=== PATIENT | male | born 1985 | race Caucasian/White ===

== ENCOUNTER 2017-03-05 20:27 | Emergency (ER) | payer SELFPAY ==
[~2017-03-05] VITALS: Ht 180.3 cm; Wt 88.0 kg
[2017-03-05 20:29] VITALS: BP 146/89; PULSE 92; RESP 16; TEMP 97.6; O2SAT 100
[2017-03-05 20:49] VITALS: BP 123/76; PULSE 101; RESP 24; TEMP 98; O2SAT 100
[2017-03-05] MEDS ORDERED: no home meds (20:53)
[2017-03-05] MEDS ORDERED: SODIUM CHLOR 0.9% 1000 ML INJ 1,000 ML IV SCH (20:55)
[2017-03-05] MEDS ORDERED: ONDANSETRON HCL 4 MG/2 ML VIAL ONE (20:57)
[2017-03-05] MEDS ORDERED: ONDANSETRON HCL 4 MG/2 ML VIAL IV PUSH ONE (21:00)
[2017-03-05] MEDS ORDERED: HYDROmorphone HCL PF 2 MG/ML VIAL IV PUSH ONE (21:00)
[2017-03-05] MEDS ORDERED: SILVER SULFADIAZINE 1% CR 50 GM JAR TOPICAL ONE (21:00)
[2017-03-05] MEDS ORDERED: KETOROLAC TROMETHAMINE 30 MG/ML (IVP) VIAL IV PUSH ONE (21:00)
[2017-03-05 21:20] LABS: BASOPHIL % 0.5 % (0.0-2.0); EOSINOPHIL # 0.4 TH/MM3 (0-0.4); EOSINOPHIL % 5.1 % (0.0-4.0); HEMATOCRIT 38.7 % (39.0-51.0); HEMO FLAGS DIFF FINAL; LYMPH % 29.6 % (9.0-44.0); LYMPHOCYTE # 2.5 TH/MM3 (1.0-4.8); MEAN CELL VOLUME 91.5 FL (80.0-100.0); MEAN CORPUSCULAR HEMOGLOBIN 31.5 PG (27.0-34.0); MEAN CORPUSCULAR HGB CONC 34.5 % (32.0-36.0); MONO % 6.7 % (0.0-8.0); NEUT % 58.1 % (16.0-70.0); PLATELET COUNT 309 TH/MM3 (150-450); RED BLOOD COUNT 4.23 MIL/MM3 (4.50-5.90); RED CELL DISTRIBUTION WIDTH 13.6 % (11.6-17.2); WHITE BLOOD COUNT 8.6 TH/MM3 (4.0-11.0)
[2017-03-05] MEDS ORDERED: TETANUS/DIPHTHERIA TOXOID ADULT 0.5 ML VIAL IM ONE (21:30)
--- NOTE | 2017-03-05 21:32 | PD ---
HPI Chief Complaint: Burn Time Seen by Provider: 21:27 Travel History International Travel<30 days: No Contact w/Intl Traveler<30days: No Traveled to known affect area: No History of Present Illness HPI 31-year-old male that presents to the ED for evaluation of burn to his right foot. Per patient he was a barbecue and he accidentally stepped on a piece of coal. This apparently happened about 45 minutes ago. Patient put the foot on eyes and she continued to have a lot of pain so he came here. He states that he does not know his last tetanus shot. He denies any medical issues. No history of drug abuse. Patient does state that he did drink alcohol today. He has no allergies to medication. No abdominal pain. No fevers chills or sweats. No other trauma reported. Patient states that all of his pain is on the plantar aspect of the foot. Able to move all toes. Patient cannot walk on the foot secondary to pain. Patient rates his pain is 10 out of 10. PFSH Past Medical History Medical History: Denies Significant Hx Diminished Hearing: No Tetanus Vaccination: Unknown Past Surgical History Surgical History: No Previous Surgery Social History Alcohol Use: Yes Tobacco Use: No Substance Use: No Allergies-Medications (Allergen,Severity, Reaction): Coded Allergies: No Known Allergies (Unverified , 03/05/17) Reported Meds & Prescriptions Reported Meds & Active Scripts Active Diclofenac Sodium DR (Diclofenac Sodium) 75 Mg Tabdr 75 Mg PO BID PRN Percocet (Oxycodone-Acetaminophen) 10-325 mg Tab 1 Tab PO Q6H PRN Keflex (Cephalexin) 250 Mg Cap 500 Mg PO Q8HR 7 Days Silvadene Topical (Silver Sulfadiazine) 1 % Cream 1 Applic TOPICAL DAILY 10 Days Reported [no home meds] Review of Systems Except as stated in HPI: all other systems reviewed are Neg Physical Exam Narrative GENERAL: SKIN: Warm and dry. HEAD: Atraumatic. Normocephalic. EYES: Pupils equal and round. No scleral icterus. No injection or drainage. ENT: No nasal bleeding or discharge. Mucous membranes pink and moist. Tongue is midline. No uvula deviation. NECK: Trachea midline. No JVD. CARDIOVASCULAR: Regular rate and rhythm. No murmurs, S3, S4. RESPIRATORY: No accessory muscle use. Clear to auscultation. Breath sounds equal bilaterally. GASTROINTESTINAL: Abdomen soft, non-tender, nondistended. Hepatic and splenic margins not palpable. MUSCULOSKELETAL: Extremities without clubbing, cyanosis, or edema. No obvious deformities. Full range of motion of the upper and lower extremities bilaterally. Patient does have what appears to be a second-degree burn with some blistering on the plantar aspect of the foot. About 5 cm. Does appear to be intact. Very tender to touch. Area surrounding the blister does appear to be first-degree burn with erythema. Total burn is less than 1% of body. It is not circumferential. Nothing noted on the heel. NEUROLOGICAL: Awake and alert. No obvious cranial nerve deficits. Motor grossly within normal limits. Five out of 5 muscle strength in the arms and legs. Normal speech. PSYCHIATRIC: Appropriate mood and affect; insight and judgment normal. Data Data Last Documented VS Vital Signs Date Time Temp Pulse Resp B/P Pulse Ox O2 Delivery O2 Flow Rate FiO2 03/05/17 20:49 98.0 101 24 123/76 100 Room Air Orders Complete Blood Count With Diff (03/05/17 20:53) Basic Metabolic Panel (Bmp) (03/05/17 20:53) Hydromorphone Pf Inj (Dilaudid Pf Inj) (03/05/17 21:00) Ondansetron Inj (Zofran Inj) (03/05/17 21:00) Silver Sulfadia 1% Crm (50 Gm) (Silvaden (03/05/17 21:00) Wound Care (03/05/17 20:53) Sodium Chlor 0.9% 1000 Ml Inj (Ns 1000 M (03/05/17 20:55) Ondansetron Inj (Zofran Inj) (03/05/17 20:57) Ketorolac Inj (Toradol Inj) (03/05/17 21:00) Tetanus/Diphtheria Tox Adult (Tetanus/Di (03/05/17 21:30) Labs Laboratory Tests Test 03/05/17 21:00 White Blood Count 8.6 TH/MM3 Red Blood Count 4.23 MIL/MM3 Hemoglobin 13.3 GM/DL Hematocrit 38.7 % Mean Corpuscular Volume 91.5 FL Mean Corpuscular Hemoglobin 31.5 PG Mean Corpuscular Hemoglobin 34.5 % Concent Red Cell Distribution Width 13.6 % Platelet Count 309 TH/MM3 Mean Platelet Volume 7.3 FL Neutrophils (%) (Auto) 58.1 % Lymphocytes (%) (Auto) 29.6 % Monocytes (%) (Auto) 6.7 % Eosinophils (%) (Auto) 5.1 % Basophils (%) (Auto) 0.5 % Neutrophils # (Auto) 5.0 TH/MM3 Lymphocytes # (Auto) 2.5 TH/MM3 Monocytes # (Auto) 0.6 TH/MM3 Eosinophils # (Auto) 0.4 TH/MM3 Basophils # (Auto) 0.0 TH/MM3 CBC Comment DIFF FINAL Differential Comment Sodium Level 142 MEQ/L Potassium Level 4.3 MEQ/L Chloride Level 106 MEQ/L Carbon Dioxide Level 28.6 MEQ/L Anion Gap 7 MEQ/L Blood Urea Nitrogen 12 MG/DL Creatinine 1.18 MG/DL Estimat Glomerular Filtration 72 ML/MIN Rate Random Glucose 73 MG/DL Calcium Level 8.7 MG/DL MDM Medical Decision Making Medical Screen Exam Complete: Yes Emergency Medical Condition: Yes Medical Record Reviewed: Yes Interpretation(s) CBC & BMP Diagram 03/05/17 21:00 BMP Diagram 03/05/17 21:00 Differential Diagnosis First versus second versus third degree alston Narrative Course 31-year-old male that presents to the ED for evaluation of alston to the right foot. Patient was properly examined and was found to have signs and symptoms very consistent what appears to be versus second-degree alston to the right foot. They are not circumferential. Case was discussed in my attending Dr. Berry who evaluated the patient with me and agrees with treatment plan. Patient was given IV pain medication as well as Toradol. Patient was given wound care with silver sulfadiazine. Given tetanus booster. Labs were drawn and were essentially unremarkable. Patient will be reassessed. Patient had wound care done. At this time patient will be discharged home with crutches, wound care endorsed. Given prescription for Keflex and silver sulfadiazine, diclofenac sodium and Percocet. Told to follow closely with PCP. See ED for worsening symptoms. Diagnosis Primary Impression: Second degree burn of right foot Qualified Code: T25.221A - Second degree burn of right foot, initial encounter Patient Instructions: General Instructions, Narcotic given in the ED Additional Instructions: Change dressings daily. Take medications as prescribed. Follow-up with PCP. See ED for any worsening symptoms. Do not drink or drive while taking pain medication. Apply ice as needed for pain Med/Other Pt SpecificInfo: Prescription(s) given Scripts Diclofenac Sodium DR 75 Mg Tabdr75 Mg PO BID PRN (PAIN SCALE 1 TO 10) #20 TAB Prov:Alda Berry MD 03/05/17 Oxycodone-Acetaminophen (Percocet)10-325 mg Tab1 Tab PO Q6H PRN (PAIN) #20 TAB Ref 0 Prov:Alda Berry MD 03/05/17 Cephalexin (Keflex)250 Mg Iff477 Mg PO Q8HR 7 Days Ref 0 Prov:Alda Berry MD 03/05/17 Silver Sulfadiazine Topical (Silvadene Topical)1 % Cream1 Applic TOPICAL DAILY 10 Days Ref 0 Prov:Alda Berry MD 03/05/17 Disposition: 01 DISCHARGE HOME Condition: Johnny Sweeney March 05, 2017 21:32
[2017-03-05 21:49] LABS: BICARBONATE 28.6 MEQ/L (21.0-32.0); POTASSIUM 4.3 MEQ/L (3.5-5.1)
[2017-03-05] MEDS ORDERED: DICL75TA PO (21:54)
[2017-03-05] MEDS ORDERED: CEPH-459 PO (21:54)
[2017-03-05] MEDS ORDERED: SILV1CRE20 TOPICAL (21:54)
[2017-03-05] MEDS ORDERED: PERC10TA27 PO (21:54)
[2017-03-05] MEDS ORDERED: oxyCODONE/ACETAMINOPHEN 10 MG/325 MG TAB PO ONE (22:15)
== END 2017-03-05 22:17 | disposition home or self-care (01) ==
LOC: NEPE 20:27
DX: T25.221A Burn of second degree of right foot, initial encounter (principal); Z23 Encounter for immunization; X19.XXXA Contact with other heat and hot substances, initial encounter
CPT/HCPCS: 80048; 85025; 90471; 90714; 96374; 96375; 99284; J1170; J1885; J2405; J7030